=== PATIENT | female | born 1955 | race Two or more races ===

== ENCOUNTER 2022-03-30 16:46 | Inpatient (IN) | payer BC, MEDICAID ==
[~2022-03-30] VITALS: Ht 170.2 cm; Wt 78.6 kg
[2022-03-30 19:50] LABS: Albumin 3.9 g/dL (3.4-5.0); BUN/Creatinine Ratio 8.4; Calcium 9.3 mg/dL (8.5-10.1); Potassium 4.1 mmol/L (3.5-5.1)
[2022-03-30 19:53] LABS: Bilirubin, Total 0.5 mg/dL (0.2-1.0); Total Protein 7.9 g/dL (6.4-8.2)
[2022-03-30 19:56] LABS: Basophils # (auto) 0.1 10 ^3/uL (0-0.2); Basophils % (auto) 0.6 % (0.0-2.0); Eosinophils # (auto) 0.1 10 ^3/uL (0-0.8); Eosinophils % (auto) 0.8 % (0.0-7.0); Hematocrit 39.9 % (36.0-46.0); Hemoglobin 13.2 g/dL (12.2-16.2); Lymphocytes # (auto) 1.4 10 ^3/uL (0.4-5.4); Lymphocytes % (auto) 10.6 % (10.0-50.0); Mean Corpuscular Hemoglobin 28.7 pg (28.0-32.0); Mean Corpuscular Volume 86.8 fL (80.0-100.0); Monocytes # (auto) 0.7 10 ^3/uL (0-1.3); Monocytes % (auto) 5.1 % (0.0-12.0); Neutrophils % (auto) 82.9 % (37.0-80.0); Nucleated Red Blood Cells % 0.1 %; Red Cell Distribution Width 15.9 % (11.8-14.3); White Blood Cell 13.2 10^3/uL (4.4-10.8)
[2022-03-30] MEDS ORDERED: ENOXAPARIN SOD 100 MG/1 ML SYRINGE SC ONE (20:15)
[2022-03-30] MEDS ORDERED: NITROGLYCERIN 0.4 MG SL TAB SL PRN (21:30)
[2022-03-30] MEDS ORDERED: TEMAZEPAM 15 MG CAP PO PRN (21:30)
[2022-03-30] MEDS ORDERED: ONDANSETRON HCL 4 MG/2 ML VIAL IV PRN (21:30)
[2022-03-30] MEDS ORDERED: ACETAMINOPHEN 325 MG TAB PO PRN (21:30)
[2022-03-30] MEDS ORDERED: MORPHINE SULFATE INJ 2 MG/ml SYRG IV PRN (21:30)
[2022-03-30] MEDS ORDERED: ATORVASTATIN 20 MG TAB PO SCH (22:00)
[2022-03-30] MEDS: CARVEDILOL 3.125 MG TAB PO SCH (23:21)
[2022-03-31] MEDS ORDERED: AMLO-489 PO (02:32)
[2022-03-31] MEDS ORDERED: CETI10CA PO (02:32)
[2022-03-31] MEDS ORDERED: CARV3.1240 PO (02:32)
[2022-03-31] MEDS ORDERED: CHOL20007 OR (02:32)
[2022-03-31] MEDS ORDERED: ASPI-407 PO (02:32)
[2022-03-31] MEDS ORDERED: HYDR25TA4 PO (02:32)
[2022-03-31 05:00] VITALS: BP 156/82
[2022-03-31 05:29] LABS: Basophils # (auto) 0.1 10 ^3/uL (0-0.2); Basophils % (auto) 0.7 % (0.0-2.0); Eosinophils # (auto) 0.1 10 ^3/uL (0-0.8); Eosinophils % (auto) 1.1 % (0.0-7.0); Hemoglobin 12.3 g/dL (12.2-16.2); Lymphocytes # (auto) 2.3 10 ^3/uL (0.4-5.4); Lymphocytes % (auto) 22.4 % (10.0-50.0); Mean Corpuscular Hemoglobin 30.1 pg (28.0-32.0); Mean Corpuscular Hgb Conc. 35.3 g/dL (32.0-36.0); Mean Corpuscular Volume 85.2 fL (80.0-100.0); Monocytes % (auto) 10.1 % (0.0-12.0); Neutrophils # (auto) 6.6 10 ^3/uL (1.6-8.6); Neutrophils % (auto) 65.7 % (37.0-80.0); Red Cell Distribution Width 15.7 % (11.8-14.3); White Blood Cell 10.1 10^3/uL (4.4-10.8)
[2022-03-31 05:44] LABS: BUN/Creatinine Ratio 10.3; Potassium 3.4 mmol/L (3.5-5.1)
[2022-03-31 09:04] VITALS: BP 139/89
[2022-03-31] MEDS: ASPirin 81 mg TAB PO SCH (09:52)
[2022-03-31] MEDS: CARVEDILOL 3.125 MG TAB PO SCH (09:52)
[2022-03-31] MEDS: amLODIPine BESYLATE 5 MG TAB PO SCH (09:53)
[2022-03-31] MEDS: HCTZ 25 MG TAB PO SCH (09:53)
[2022-03-31] MEDS ORDERED: ENOXAPARIN SOD 40 MG/0.4 ML SYRINGE SC SCH (10:00)
[2022-03-31] MEDS ORDERED: POTASSIUM CHL 20MEQ/100ML 100 ML IV ONE (10:45)
[2022-03-31] MEDS: ATORVASTATIN 20 MG TAB PO SCH ×2 (11:00→22:12)
[2022-03-31] MEDS ORDERED: ENOXAPARIN SOD 40 MG/0.4 ML SYRINGE SC ONE (11:00)
[2022-03-31 11:39] LABS: Urine Specific Gravity 1.014 (1.001-1.035)
[2022-03-31 11:40] LABS: Urine Blood Negative /uL (Negative)
[2022-03-31 11:41] LABS: Urine Bacteria FEW /hpf (None Seen)
[2022-03-31 11:43] LABS: Magnesium 1.9 mg/dL (1.6-2.6)
[2022-03-31] MEDS: hydrALAZINE HCL 20 MG/ML VL IV PRN ×2 (12:51→18:37)
[2022-03-31 12:59] VITALS: BP 151/80
[2022-03-31] MEDS ORDERED: POTASSIUM CHL 20 Meq TABLET PO ONE (13:15)
[2022-03-31 17:00] VITALS: BP 150/86
[2022-03-31 22:00] VITALS: BP 128/84
[2022-03-31] MEDS: METOPROLOL TARTRATE 25 MG TAB PO SCH (22:13)
[2022-03-31] MEDS: ENOXAPARIN SOD 80 MG/0.8ML SYRINGE SC SCH (22:13)
[2022-04-01] VITALS (10 sets, daily range): BP systolic 105–122; BP diastolic 56–79
[2022-04-01 06:23] LABS: Basophils # (auto) 0.1 10 ^3/uL (0-0.2); Basophils % (auto) 0.7 % (0.0-2.0); Eosinophils # (auto) 0.1 10 ^3/uL (0-0.8); Eosinophils % (auto) 0.5 % (0.0-7.0); Hematocrit 38.4 % (36.0-46.0); Hemoglobin 13.6 g/dL (12.2-16.2); Lymphocytes # (auto) 2.6 10 ^3/uL (0.4-5.4); Lymphocytes % (auto) 21.6 % (10.0-50.0); Mean Corpuscular Hemoglobin 30.2 pg (28.0-32.0); Mean Corpuscular Hgb Conc. 35.4 g/dL (32.0-36.0); Mean Corpuscular Volume 85.3 fL (80.0-100.0); Monocytes # (auto) 1.4 10 ^3/uL (0-1.3); Monocytes % (auto) 11.8 % (0.0-12.0); Neutrophils # (auto) 7.9 10 ^3/uL (1.6-8.6); Neutrophils % (auto) 65.4 % (37.0-80.0); Nucleated Red Blood Cells % 0.1 %; Red Cell Distribution Width 15.6 % (11.8-14.3); White Blood Cell 12.1 10^3/uL (4.4-10.8)
[2022-04-01 06:24] LABS: BUN/Creatinine Ratio 10.5; INR 1.16 (0.9-1.15); Partial Thromboplastin Time 38.1 sec (23.6-33.0); Potassium 3.7 mmol/L (3.5-5.1)
[2022-04-01] MEDS ORDERED: fentaNYL CITRATE 100 MCG/2 ML VL ONE (09:11)
[2022-04-01] MEDS ORDERED: VERAPAMIL 2.5MG/ML INJ 2ML VIAL IV ONE (09:11)
[2022-04-01] MEDS ORDERED: ANGIOMAX 250 MG VIAL IV ONE (09:11)
[2022-04-01] MEDS ORDERED: LIDOCAINE 2%HCL (LOCAL ANESTH.) INJ 10ml MDV ONE (09:12)
[2022-04-01] MEDS ORDERED: SODIUM CHL 0.9% 0 ML ONE (09:12)
[2022-04-01] MEDS ORDERED: MIDAZOLAM HCL 2MG/2ML 2ml VIAL (1mg/ml) ONE (09:12)
[2022-04-01] MEDS ORDERED: HEPARIN SODIUM (PORCINE) 5000 UNITS/ML 1ML VIAL ONE (09:12)
[2022-04-01 11:57] LABS: Protein, Urine 14.7 mg/dL (0.0-11.9)
[2022-04-01] MEDS: amLODIPine BESYLATE 5 MG TAB PO SCH (12:00)
[2022-04-01] MEDS: ENOXAPARIN SOD 80 MG/0.8ML SYRINGE SC SCH ×2 (12:00→22:00)
[2022-04-01] MEDS: HCTZ 25 MG TAB PO SCH (12:00)
[2022-04-01] MEDS: ASPirin 81 mg TAB PO SCH ×2 (12:00→20:15)
[2022-04-01] MEDS: METOPROLOL TARTRATE 25 MG TAB PO SCH ×2 (12:00→22:00)
[2022-04-01] MEDS: SODIUM CHLORIDE 0.9% 1,000 ML IV SCH ×2 (13:40→19:30)
[2022-04-01] MEDS: ATORVASTATIN 20 MG TAB PO SCH (22:00)
[2022-04-02 05:00] VITALS: BP 110/57
[2022-04-02 05:21] LABS: Basophils # (auto) 0.1 10 ^3/uL (0-0.2); Basophils % (auto) 1.1 % (0.0-2.0); Eosinophils # (auto) 0.1 10 ^3/uL (0-0.8); Eosinophils % (auto) 0.8 % (0.0-7.0); Hemoglobin 12.9 g/dL (12.2-16.2); Lymphocytes % (auto) 18.6 % (10.0-50.0); Mean Corpuscular Hemoglobin 29.9 pg (28.0-32.0); Mean Corpuscular Hgb Conc. 34.7 g/dL (32.0-36.0); Mean Corpuscular Volume 86.1 fL (80.0-100.0); Monocytes # (auto) 1.1 10 ^3/uL (0-1.3); Monocytes % (auto) 9.8 % (0.0-12.0); Neutrophils # (auto) 7.6 10 ^3/uL (1.6-8.6); Neutrophils % (auto) 69.7 % (37.0-80.0); Red Cell Distribution Width 15.9 % (11.8-14.3); White Blood Cell 10.9 10^3/uL (4.4-10.8)
[2022-04-02 05:36] LABS: Potassium 3.7 mmol/L (3.5-5.1)
[2022-04-02 05:43] LABS: BUN/Creatinine Ratio 13.8; Calcium 8.5 mg/dL (8.5-10.1)
[2022-04-02] MEDS: SODIUM CHLORIDE 0.9% 1,000 ML IV SCH (06:20)
[2022-04-02 08:00] VITALS: BP 123/70
[2022-04-02 09:00] VITALS: BP 123/70
[2022-04-02] MEDS: METOPROLOL TARTRATE 25 MG TAB PO SCH (10:09)
[2022-04-02] MEDS: ASPirin 81 mg TAB PO SCH (10:09)
[2022-04-02] MEDS: amLODIPine BESYLATE 5 MG TAB PO SCH (10:10)
[2022-04-02 13:00] VITALS: BP 120/75
[2022-04-02 13:21] VITALS: BP 123/70
== END 2022-04-02 13:00 | disposition home or self-care (01) | DRG 280 ==
LOC: ER 16:46 → TELE 21:17 → TELE-CENTR 23:17 → TELE-EAST 23:49
PROVIDERS: ADMIT Nurse Practitioner; ATTEND Internal Medicine
PROC: 4A023N7 Measurement of Cardiac Sampling and Pressure, Left Heart, Percutaneous Approach (ICD-10-PCS; principal; 2022-04-01)
PROC: B211YZZ Fluoroscopy of Multiple Coronary Arteries using Other Contrast (ICD-10-PCS; 2022-04-01)
PROC: B215YZZ Fluoroscopy of Left Heart using Other Contrast (ICD-10-PCS; 2022-04-01)
DX: I21.4 Non-ST elevation (NSTEMI) myocardial infarction (principal); N17.0 Acute kidney failure with tubular necrosis; D72.829 Elevated white blood cell count, unspecified; E78.5 Hyperlipidemia, unspecified; E87.6 Hypokalemia; N18.9 Chronic kidney disease, unspecified; R19.00 Intra-abdominal and pelvic swelling, mass and lump, unspecified site; I12.9 Hypertensive chronic kidney disease with stage 1 through stage 4 chronic kidney disease, or unspecified chronic kidney disease; Z82.5 Family history of asthma and other chronic lower respiratory diseases; Z83.3 Family history of diabetes mellitus; Z88.0 Allergy status to penicillin; Z20.822 Contact with and (suspected) exposure to COVID-19
CPT/HCPCS: 36415; 71046; 76775; 80048; 80053; 80061; 81001; 82306; 82570; 83036; 83735; 83970; 84100; 84156; 84300; 84443; 84484; 85025; 85610; 85730; 86850; 86900; 86901; 93005; 93306; 93458; 96372; 99152; 99291; G0378; J2001; J2250; J2405

== ENCOUNTER 2024-11-12 10:19 | Emergency (ER) | payer OTHER ==
[~2024-11-12] VITALS: Ht 165.1 cm; Wt 73.0 kg
[~2024-11-12 10:19] MED LIST: AMLO1TAB22 PO; ASPI-407 PO; CARV3.1240 PO; CETI10CA PO; CHOL20007 OR; HYDR25TA4 PO
[2024-11-12 11:45] VITALS: BP 112/54; PULSE 81; RESP 16; TEMP 97.9; O2SAT 98
--- NOTE | 2024-11-12 11:47 | ED.PDOC ---
Musculoskeletal HPI Comments 69 year old presents for possible fracture to the right ankle inverted ankle stepping down a curb reports pain with ambulation pain rated 10 no previous injuries Still able to bear weight Not able to bear weight Denies previous surgeries to the ankle Denies redness or swelling around the ankle Denies fever chills night sweats nausea vomiting Chief Complaint: Lower Extremity Time Seen by MD: 10:47 Primary Care Provider: artem Christensen Notes: Nurses Notes, Medications, Allergies Allergies: Coded Allergies: Penicillins (Verified Allergy, Unknown, 03/30/22) Home Meds Active Scripts Ibuprofen (Ibuprofen) 600 Mg Tab, 1 TAB PO TID for 10 Days, #30 TAB 0 Refills Prov:BRAXTON,RIVERA Scott CARE MANAGER CNA 11/12/24 Reported Medications Cholecalciferol (VITAMIN D3) 2,000 Unit Tab, 1000 UNIT OR BID, TAB 03/31/22 Hydrochlorothiazide (Hydrochlorothiazide) 25 Mg Tab, 25 MG PO DAILY for 30 Days, MG 03/31/22 Cetirizine Hcl (Zyrtec Allergy) 10 Mg Cap, 10 MG PO, CAP 03/31/22 Carvedilol (Carvedilol) 3.125 Mg Tab, 3.125 MG PO BID for 30 Days, MG 03/31/22 Aspirin (HARRY ASPIRIN) 325 Mg Tab, 81 MG PO, TAB 03/31/22 Amlodipine Besylate (Amlodipine Besylate) 5 Mg Tab, 10 MG PO DAILY for 30 Days, MG 03/31/22 Information Source: Patient Mode of Arrival: Wheelchair Past Medical History PAST MEDICAL HISTORY: High Lipids, HTN Surgical History: Tonsillectomy ECOLOGIST History: Denies all ECOLOGIST Hx Family History Family History: Reviewed,noncontributory to illness Social History Smoker: Non-Smoker Alcohol: Denies ETOH Use Drugs: Denies Drug Use Lives In: Home All Other Systems: Reviewed and Negative (per hpi) Physical Exam General Appearance: No Apparent Distress, Normal HEENT: Normal ENT Inspection, Pharynx Normal, TMs Normal Neck: Full Range of Motion, Non-Tender, Normal, Normal Inspection Respiratory: Chest Non-Tender, Lungs Clear, No Accessory Muscle Use, No Respiratory Distress, Normal Breath Sounds Cardiovascular: No Edema, No JVD, No Murmur, No Gallop, Normal Peripheral Pulses, Regular Rate/Rhythm Breast Exam: Deferred Gastrointestinal: No Organomegaly, Non Tender, No Pulsatile Mass, Normal Bowel Sounds, Soft Genitalia: Deferred Pelvic: Deferred Rectal: Deferred Extremities: No calf tenderness, Normal capillary refill, Normal inspection, Normal range of motion, Non-tender, No pedal edema Musculoskeletal : Apperance: Normal Neurologic: Alert, carbonation equipment operator II-XII nml as Tested, No Motor Deficits, Normal Affect, Normal Mood, No Sensory Deficits Cerebellar Function: Normal Reflexes: Normal Skin: Dry, Normal Color, Warm Lymphatic: No Adenopathy Was a procedure done? Was a procedure done?: No Images 1 - Gross abnormality on inspection. No ecchymosis. No open wounds. Localized soft tissue swelling. Full passive and active range of motion. DP 2+ Differential Diagnosis EXT Differential Diagnosis: Fracture, Sprain X-Ray, Labs, Meds, VS Vital Signs Date Time Temp Pulse Resp B/P (MAP) Pulse Ox O2 Delivery O2 Flow Rate FiO2 11/12/24 11:45 97.9 81 16 112/54 (73) 98 97.9 11/12/24 11:18 81 18 98 Room Air 11/12/24 11:18 81 18 117/91 (100) 98 11/12/24 10:41 98.0 81 18 117/91 (100) 98 Current Medications Medications (Trade) Dose Ordered Sig/Sherry Route Start Time Stop Time Status Last Admin Acetaminophen/ Hydrocodone Bitart ([place] 5/325MG Tab) 1 tab ONCE ONCE PO 11/12/24 11:45 11/12/24 11:58 DC 11/12/24 12:01 PATIENT: MONALISA ANDERSONCT: [id number]: [id number] : 1955 LOC: ER ROOM / BED: / AGE / SEX: 69 / F ADM STATUS: REG ER SERVICE 1043 ORDERING PHYSICIAN: RIVERA LIMON NP PROCEDURE(s): RANKL - R ANKLE 3 VIEW REASON: r/o fx ORDER NUMBER(s): [id number], ACCESSION NUMBER(s): [id number] XY R ANKLE 3 VIEW, INDICATION: r/o fx TECHNICAL DATA:Frontal , oblique and lateral views were obtained of the right ankle. COMPARISON: None FINDINGS: No fracture is identified. Joint spaces are maintained. Alignment is anatomic. Soft tissues are within normal limit. IMPRESSION: No acute fracture or dislocation of the right ankle. ATED BY: ZEKE RADFORD MD DICTATED DATE/TIME: 11/12/241203 SIGNED BY: ZEKE RADFORD MD SIGNED DATE/TIME: 11/12/241203 CC: X-Ray, Labs, Meds, VS Comment History and examination consistent of muscular injury X-rays ordered, read by radiologist and reviewed by me Imaging shows Suspect muscle sprain Low likelihood of bony or more serious injury, VSS, pt stable Take IBU 600 w/ food as needed for pain Recommended heat therapy Reviewed RICE management Avoid heavy lifting or strenuous activity Recommended range of motion exercises and limit heavy activity for 1 week If no improvement advised patient to return to the emergency department for follow-up. Discussed possibility of a occult fracture On reevaluation, patient had symptomatic improvement. Patient is stable for discharge at this time. External notes reviewed. Test results and diagnostic imaging interpreted. All diagnostic findings, discharge care, education and instructions provided Follow-up with PCP in 2 to 3 days Patient verbalized understanding and agreed to treatment plan Vital signs stable, afebrile, no acute distress noted Patient ambulatory with strong steady gait with crutches Advised to return precautions for any new or worsening symptoms, return to ER immediately for re-evaluation Patient is aware that the purpose of this visit was for an acute medical emergency requiring emergent stabilization. Chronic conditions, including malignancies have not been ruled out. Patient is instructed to follow up with PCP as directed and discharge instructions for continued care and workup. If unable to arrange follow-up, patient is to return to the emergency department for reassessment. Patient (parent or legal guardian if applicable) was given verbal and written discharge instructions and acknowledges understanding. Time of 1ST Reevaluation: 12:20 Reevaluation 1ST: Improved Patient Education/Counseling: Diagnosis, Treatment Family Education/Counseling: Diagnosis, Treatment Departure 1 Departure Time of Disposition: 12:20 Impression: Primary Impression: Ankle sprain Qualified Codes: S93.401A - Sprain of unspecified ligament of right ankle, initial encounter Disposition: HOME / SELF CARE / HOMELESS Condition: Stable e-Prescriptions Ibuprofen (Ibuprofen) 600 Mg Tab 1 TAB PO TID for 10 Days, #30 TAB 0 Refills Prov: RIVERA LIMON NP 11/12/24 Discharged With: Spouse Critical Care Note Critical Care Time?: No Stability Stability form required: No Heart Score Heart Score: Heart Score Response (Comments) Value History N/A 0 EKG N/A 0 Age N/A 0 Risk Factors N/A 0 Troponin N/A 0 Total 0 RIVERA LIMON NP Nov 12, 2024 11:47
[2024-11-12] MEDS: HYDROcodone-ACET 5/325MG TAB PO ONE (12:01)
--- NOTE | 2024-11-12 12:07 | DVH ---
XY R ANKLE 3 VIEW, INDICATION: r/o fx TECHNICAL DATA:Frontal , oblique and lateral views were obtained of the right ankle. COMPARISON: None FINDINGS: No fracture is identified. Joint spaces are maintained. Alignment is anatomic. Soft tissues are wit hin normal limit. IMPRESSION: No acute fracture or dislocation of the right ankle.
[2024-11-12] MEDS ORDERED: IBUP-1454 PO (12:21)
== END 2024-11-12 12:22 | disposition home or self-care (01) ==
LOC: ER 10:19
DX: S93.401A Sprain of unspecified ligament of right ankle, initial encounter (principal); I10 Essential (primary) hypertension; Z79.1 Long term (current) use of non-steroidal anti-inflammatories (NSAID); Z79.899 Other long term (current) drug therapy; Z88.0 Allergy status to penicillin; Z90.89 Acquired absence of other organs; W22.8XXA Striking against or struck by other objects, initial encounter; Y93.89 Activity, other specified; Y92.89 Other specified places as the place of occurrence of the external cause; Y99.8 Other external cause status
CPT/HCPCS: 73610